=== PATIENT | male | born 1985 ===

== ENCOUNTER 2018-02-20 17:05 | Emergency (ER) | payer OTHER ==
[2018-02-20 17:21] VITALS: BP 144/84; PULSE 87; RESP 20; TEMP 98.7; O2SAT 97
--- NOTE | 2018-02-20 17:41 | C.PDOC ---
History Of Present Illness 32 y/o male complaining of pain and swelling to medial aspect of right ankle which has been present for the past 2 months.Patient states that he has been taking Advil with minimal relief. Patient denies having falls, injuries, weakness, and numbness. Chief Complaint (Nursing): Lower Extremity Problem/Injury History Per: Patient History/Exam Limitations: no limitations Onset/Duration Of Symptoms: Days Current Symptoms Are (Timing): Still Present Severity: Moderate Past Medical History Reviewed: Historical Data, Nursing Documentation, Vital Signs Vital Signs: Last Vital Signs Temp 98.7 F 02/20/18 17:20 Pulse 87 02/20/18 17:20 Resp 20 02/20/18 17:20 BP 144/84 02/20/18 17:20 Pulse Ox 97 02/20/18 18:42 - Medical History PMH: No Chronic Diseases Surgical History: No Surg Hx Family History: States: No Known Family Hx - Social History Hx Alcohol Use: Yes Hx Substance Use: No - Immunization History Hx Tetanus Toxoid Vaccination: No Hx Influenza Vaccination: No Hx Pneumococcal Vaccination: No Review Of Systems Except As Marked, All Systems Reviewed And Found Negative. Musculoskeletal: Positive for: Other (right ankle pain) Neurological: Negative for: Weakness, Numbness Physical Exam - Physical Exam Appears: Non-toxic, No Acute Distress Skin: Normal Color, Warm Head: Atraumatic, Normacephalic Eye(s): bilateral: Normal Inspection Nose: Normal Oral Mucosa: Moist Neck: Supple Chest: Symmetrical Extremity: Normal ROM, Tenderness (tenderness to medial aspect of right ankle), Swelling (swelling around right ankle) Neurological/Psych: Oriented x3, Normal Speech ED Course And Treatment O2 Sat by Pulse Oximetry: 97 (RA) Pulse Ox Interpretation: Normal Medical Decision Making Medical Decision Making: Plan: --X-Ray- Right Ankle --Motrin PO --Tylenol PO Disposition Counseled Patient/Family Regarding: Diagnosis, Need For Followup, Rx Given - Disposition Referrals: [facility] [Outside] Disposition: HOME/ ROUTINE Disposition Time: 18:40 Condition: STABLE Additional Instructions: Follow up in Podiatry clinic. Rest, Ice and elevate your foot. Take Motrin for pain. Prescriptions: Ibuprofen [Motrin] 600 mg PO TID #15 tab Instructions: Foot Sprain (DC) Forms: General Discharge Instructions, [facility] (Faroese), Work Excuse - POA Present On Arrival: None - Clinical Impression Clinical Impression: Joint pain, Joint swelling - Scribe Statement The provider has reviewed the documentation as recorded by the Melisaibe Constance Godfrey Provider Attestation: All medical record entries made by the Melisaibe were at my direction and personally dictated by me. I have reviewed the chart and agree that the record accurately reflects my personal performance of the history, physical exam, medical decision making, and the department course for this patient. I have also personally directed, reviewed, and agree with the discharge instructions and disposition.
== END 2018-02-20 19:07 | disposition home or self-care (01) ==
LOC: C.ER 17:05
DX: M25.571 Pain in right ankle and joints of right foot (principal); M25.471 Effusion, right ankle